=== PATIENT | male | born 1945 | race Caucasian/White ===

== ENCOUNTER 2017-08-19 12:53 | Emergency (ER) | payer MEDICARE ==
[~2017-08-19 12:53] MED LIST: ASPI325T PO; CYAN1000P IM; DIGO0.25 PO; LEVO50TA4 PO; VITA10002 PO
[2017-08-19 12:56] VITALS: BP 118/57; PULSE 89; RESP 14; TEMP 98.6; O2SAT 99
[2017-08-19 16:03] LABS: AUTOMATED NEUTROPHIL # 7.3 TH/MM3 (1.8-7.7); BASOPHIL % 0.2 % (0.0-2.0); EOSINOPHIL % 0.3 % (0.0-4.0); HEMATOCRIT 45.5 % (39.0-51.0); HEMOGLOBIN 15.2 GM/DL (13.0-17.0); LYMPH % 5.4 % (9.0-44.0); LYMPHOCYTE # 0.5 TH/MM3 (1.0-4.8); MEAN CELL VOLUME 93.8 FL (80.0-100.0); MEAN CORPUSCULAR HEMOGLOBIN 31.4 PG (27.0-34.0); MEAN CORPUSCULAR HGB CONC 33.5 % (32.0-36.0); MEAN PLATELET VOLUME 8.2 FL (7.0-11.0); MONO % 12.5 % (0.0-8.0); MONOCYTE # 1.1 TH/MM3 (0-0.9); NEUT % 81.6 % (16.0-70.0); PLATELET COUNT 164 TH/MM3 (150-450); RED BLOOD COUNT 4.85 MIL/MM3 (4.50-5.90); RED CELL DISTRIBUTION WIDTH 13.3 % (11.6-17.2); WHITE BLOOD COUNT 8.9 TH/MM3 (4.0-11.0)
[2017-08-19 16:18] LABS: ALBUMIN 3.9 GM/DL (3.4-5.0); ALT (GPT) 39 U/L (12-78); AST (GOT) 21 U/L (15-37); BICARBONATE 25.8 MEQ/L (21.0-32.0); BLOOD UREA NITROGEN 30 MG/DL (7-18); CALCIUM 9.2 MG/DL (8.5-10.1); CHLORIDE 97 MEQ/L (98-107); CREATININE 1.26 MG/DL (0.60-1.30); GLOMERULAR FILTRATION RATE 56 ML/MIN (>89); GLUCOSE,RANDOM 212 MG/DL (74-106); LIPASE 123 U/L (73-393); SODIUM (NA) 133 MEQ/L (136-145)
[2017-08-19 16:21] LABS: ALKALINE PHOSPHATASE 69 U/L (45-117); TOTAL BILIRUBIN ADULT 1.2 MG/DL (0.2-1.0); TOTAL PROTEIN 7.9 GM/DL (6.4-8.2)
[2017-08-19] MEDS ORDERED: ZOFR4TAB3 SL (17:09)
[2017-08-19 17:10] VITALS: BP_SYST 131; BP_SYST 132; BP_DIAS 73; BP_DIAS 86; RESP 20
--- NOTE | 2017-08-19 17:10 | PD ---
HPI Chief Complaint: Medical Clearance Time Seen by Provider: 16:01 Travel History International Travel<30 days: No Contact w/Intl Traveler<30days: No Traveled to known affect area: No History of Present Illness HPI 72-year-old male presents to the emergency department after being referred from his primary care for hypertension. Patient's blood pressure was in the 80s systolically and his primary care. Patient states he was reported to the doctor today because he's been feeling weak with a sore throat since last . At his primary care office today he had an episode of nausea and he vomited once. Patient states that is the only time he has vomited the symptoms started. Patient denies any chest pain, shortness breath, abdominal pain, diarrhea. Patient denies any nausea at this time. Patient is denies any fever , chills, malaise. PFSH Past Medical History Cancer: No Cardiovascular Problems: No Diminished Hearing: No Endocrine: Yes Genitourinary: No Immune Disorder: No Musculoskeletal: No Neurologic: Yes Psychiatric: No Reproductive: No Respiratory: No Thyroid Disease: Yes (hypothyroidism) Social History Alcohol Use: Yes (occ) Tobacco Use: No Substance Use: No Allergies-Medications (Allergen,Severity, Reaction): Coded Allergies: No Known Allergies (Verified Adverse Reaction, Unknown, 08/19/17) Reported Meds & Prescriptions Reported Meds & Active Scripts Active Zofran Odt (Ondansetron Odt) 4 Mg Tab 4 Mg SL Q6HR PRN Reported Vitamin B12 (Cyanocobalamin) 1,000 Mcg/Ml Inj 1,000 Mcg IM MONTHLY Vitamin B12 (Cyanocobalamin) 1,000 Mcg/Ml Inj 1,000 Mcg IM DAILY 7 Days After 7 days completed, then start monthly dose Vitamin B12 (Cyanocobalamin) 1,000 Mcg Tab 1,000 Mcg PO DAILY Digoxin 0.25 mg (Digoxin) 0.25 Mg Tab 0.25 Mg PO Aspirin 325 mg (Aspirin) 325 Mg Tab 325 Mg PO DAILY Levothyroxine 50 mcg (Levothyroxine Sodium) 50 Mcg Tab 50 Mcg PO DAILY Review of Systems Except as stated in HPI: all other systems reviewed are Neg Physical Exam Narrative GENERAL: Well-nourished, well-developed 72-year-old male patient in no acute distress. Nontoxic appearing. SKIN: Focused skin assessment warm/dry. HEAD: Normocephalic. Atraumatic. NEUROLOGICAL: Awake and alert. Cranial nerves II through XII intact. Motor and sensory grossly within normal limits. Five out of 5 muscle strength in all muscle groups. Normal speech. EYES: No scleral icterus. No injection or drainage. THROAT: Mild pharyngeal injection, No exudates or tonsillar hypertrophy. Airway is patent. NECK: Supple, trachea midline. No JVD or lymphadenopathy. CARDIOVASCULAR: Regular rate and rhythm without murmurs, gallops, or rubs. RESPIRATORY: Breath sounds equal bilaterally. No accessory muscle use. GASTROINTESTINAL: Abdomen soft, non-tender, nondistended. MUSCULOSKELETAL: No cyanosis, or edema. BACK: Nontender without obvious deformity. No CVA tenderness. Data Data Last Documented VS Vital Signs Date Time Temp Pulse Resp B/P (MAP) Pulse Ox O2 Delivery O2 Flow Rate FiO2 08/19/17 17:22 08/19/17 17:10 69 20 83 20 08/19/17 12:56 98.6 99 Orders Orders Complete Blood Count With Diff (08/19/17 13:16) Comprehensive Metabolic Panel (08/19/17 13:16) Lipase (08/19/17 13:16) Group A Rapid Strep Screen (08/19/17 13:16) Influenzae A/B Antigen (08/19/17 13:16) Strep Culture (Group A) (08/19/17 15:30) Electrocardiogram (08/19/17 ) Orthostatic Vital Signs (08/19/17 16:46) Ed Discharge Order (08/19/17 17:12) Labs Laboratory Tests Test 08/19/17 15:30 White Blood Count 8.9 TH/MM3 Red Blood Count 4.85 MIL/MM3 Hemoglobin 15.2 GM/DL Hematocrit 45.5 % Mean Corpuscular Volume 93.8 FL Mean Corpuscular Hemoglobin 31.4 PG Mean Corpuscular Hemoglobin Concent 33.5 % Red Cell Distribution Width 13.3 % Platelet Count 164 TH/MM3 Mean Platelet Volume 8.2 FL Neutrophils (%) (Auto) 81.6 % Lymphocytes (%) (Auto) 5.4 % Monocytes (%) (Auto) 12.5 % Eosinophils (%) (Auto) 0.3 % Basophils (%) (Auto) 0.2 % Neutrophils # (Auto) 7.3 TH/MM3 Lymphocytes # (Auto) 0.5 TH/MM3 Monocytes # (Auto) 1.1 TH/MM3 Eosinophils # (Auto) 0.0 TH/MM3 Basophils # (Auto) 0.0 TH/MM3 CBC Comment DIFF FINAL Differential Comment Blood Urea Nitrogen 30 MG/DL Creatinine 1.26 MG/DL Random Glucose 212 MG/DL Total Protein 7.9 GM/DL Albumin 3.9 GM/DL Calcium Level 9.2 MG/DL Alkaline Phosphatase 69 U/L Aspartate Amino Transf (AST/SGOT) 21 U/L Alanine Aminotransferase (ALT/SGPT) 39 U/L Total Bilirubin 1.2 MG/DL Sodium Level 133 MEQ/L Potassium Level 4.0 MEQ/L Chloride Level 97 MEQ/L Carbon Dioxide Level 25.8 MEQ/L Anion Gap 10 MEQ/L Estimat Glomerular Filtration Rate 56 ML/MIN Lipase 123 U/L [facility] Medical Decision Making Medical Screen Exam Complete: Yes Emergency Medical Condition: Yes Interpretation(s) Afebrile, normotensive Differential Diagnosis Differential diagnosis include but not limited to electrolyte abnormality, dehydration, arrhythmia, sepsis Narrative Course Blood work sent from triage. CBC, CMP, lipase ordered and pending. Rapid strep and influenza ordered and pending. CBC is unremarkable. CMP shows mild hyponatremia at 133, elevated BUN at 30, decreased GFR 56, elevated glucose of 212. Lipase 123. Rapid strep and influenza both negative. Orthostatic vital show a up of 14 beats a minute heart rate from lying to standing. He should prefer not to have an IV so alternative of Gatorade PO for hydration was provided. Patient drank two full sized Gatorades in our facility. Patient instructed to consume electrolyte drinks until symptoms of weakness completely resolve. EKG was ordered and interpreted. It showed sinus rhythm with sinus arrhythmia with first degree AV block, HR 66. Symptoms significantly better after hydration. Patient is discharged home with instructions as a hydrated and given a prescription for Zofran for nausea as needed. Diagnosis Primary Impression: Generalized weakness Referrals: Primary Care Physician Patient Instructions: General Instructions, Weakness (ED) Med/Other Pt SpecificInfo: Prescription(s) given Scripts Ondansetron Odt (Zofran Odt) 4 Mg Tab 4 MG SL Q6HR Y for Nausea/Vomiting, #15 TAB 0 Refills Prov: Luisa Valenzuela 08/19/17 Disposition: DISCHARGE HOME Condition: Stable Luisa Valenzuela Aug 19, 2017 17:10
--- NOTE | 2017-08-20 16:07 | EKG ---
Date Performed: 08/19/2017 Time Performed: 17:10:43 PTAGE: 72 years EKG: Sinus rhythm WITH SINUS ARRHYTHMIA WITH FIRST DEGREE AV BLOCK NONSPECIFIC T-WAVE ABNORMALITY ABNORMAL ECG PREVIOUS TRACING : 06/05/2011 03.10 Rate has slowed since prior tracing with normalization of S T-T wave changes. Clinical correlation is recommended. DOCTOR: Camilo Daniels Interpretating Date/Time 08/20/2017 16:06:44
[2017-08-20] MEDS ORDERED: ARMO120T PO (17:29)
[2017-08-20] MEDS ORDERED: METF500T PO (17:29)
[2017-08-20] MEDS ORDERED: DIGO0.25 PO (17:29)
[2017-08-20] MEDS ORDERED: CEFU1TAB20 PO (17:29)
== END 2017-08-19 17:22 | disposition home or self-care (01) ==
LOC: NEPD 12:53
DX: R53.1 Weakness (principal); J02.9 Acute pharyngitis, unspecified; E03.9 Hypothyroidism, unspecified; R94.31 Abnormal electrocardiogram [ECG] [EKG]
CPT/HCPCS: 80053; 83690; 85025; 87081; 87804; 87880; 93005

== ENCOUNTER 2017-08-20 13:23 | Emergency (ER) | payer MEDICARE ==
[~2017-08-20] VITALS: Ht 190.5 cm; Wt 91.0 kg
[~2017-08-20 13:23] MED LIST changes: +ZOFR4TAB3 SL
[2017-08-20 13:25] VITALS: BP 128/77; PULSE 81; RESP 16; TEMP 98.4; O2SAT 97
[2017-08-20] MEDS ORDERED: METF500T PO (17:29)
[2017-08-20] MEDS ORDERED: CEFU1TAB20 PO (17:29)
[2017-08-20] MEDS ORDERED: ARMO120T PO (17:29)
[2017-08-20] MEDS ORDERED: DIGO0.25 PO (17:29)
--- NOTE | 2017-08-20 18:08 | PD ---
HPI Chief Complaint: fall Time Seen by Provider: 17:50 Travel History International Travel<30 days: No Contact w/Intl Traveler<30days: No Traveled to known affect area: No History of Present Illness HPI 72yo M with PMH of SVT on digoxin, DM presents to the ED with c/o being afraid to eat or drink because he is not sure if he will keep it down. Pt said he fell yesterday while in the bathroom and hit his head with LOC. He again went to the bathroom today and said he fell and passed out after hitting his forehead. Girlfriend said he had +LOC. Pt denies any chest pain, sob, n/v, abdominal pain, focal weakness or numbness. Said he came to the ED yesterday for hydration and has not vomited since yesterday. Said he took zofran and has not eaten/drank anything today because he was afraid to. PFSH Past Medical History Atrial Fibrillation: Yes Cancer: No Cardiovascular Problems: No Diabetes: Yes Patient Takes Glucophage: Yes (metformin ) Diminished Hearing: No Endocrine: Yes Gastrointestinal Disorders: No Genitourinary: No Immune Disorder: No Implanted Vascular Access Dvce: No Musculoskeletal: No Neurologic: Yes Psychiatric: No Reproductive: No Respiratory: No Thyroid Disease: Yes (hypothyroidism) Past Surgical History Surgical History: No Previous Surgery Other Surgery: No Social History Alcohol Use: Yes (occ) Tobacco Use: No Substance Use: No Allergies-Medications (Allergen,Severity, Reaction): Coded Allergies: No Known Allergies (Verified Adverse Reaction, Unknown, 08/19/17) Reported Meds & Prescriptions Reported Meds & Active Scripts Active Reported Cefuroxime (Cefuroxime Axetil) 500 Mg Tab 500 Mg PO BID Metformin (Metformin HCl) 500 Mg Tab 500 Mg PO DAILY With a meal [place] Thyroid (Thyroid) 120 Mg Tab 120 Mg PO DAILY Digoxin 0.25 Mg Tab 0.25 Mg PO DAILY Review of Systems Except as stated in HPI: all other systems reviewed are Neg Physical Exam Narrative GENERAL: 72yo M not in distress. SKIN: Focused skin assessment warm/dry. HEAD:Abrasions on forehead. EYES: Pupils equal and round. No scleral icterus. No injection or drainage. ENT: No nasal bleeding or discharge. Mucous membranes pink and moist. NECK: Trachea midline. No JVD. CARDIOVASCULAR: Regular rate and rhythm. No murmur appreciated. RESPIRATORY: No accessory muscle use. Clear to auscultation. Breath sounds equal bilaterally. GASTROINTESTINAL: Abdomen soft, non-tender, nondistended. MUSCULOSKELETAL: No obvious deformities. No clubbing. No cyanosis. No edema. NEUROLOGICAL: Awake and alert. No obvious cranial nerve deficits. Motor grossly within normal limits. Normal speech. PSYCHIATRIC: Appropriate mood and affect; insight and judgment normal. Data Data Last Documented VS Vital Signs Date Time Temp Pulse Resp B/P (MAP) Pulse Ox O2 Delivery O2 Flow Rate FiO2 08/20/17 22:46 08/20/17 22:29 79 20 98 Room Air 08/20/17 13:25 98.4 Orders Orders Electrocardiogram (08/20/17 18:03) Basic Metabolic Panel (Bmp) (08/20/17 18:03) Comprehensive Metabolic Panel (08/20/17 18:03) Magnesium (Mg) (08/20/17 18:03) B-Type Natriuretic Peptide (08/20/17 18:03) Troponin I (08/20/17 18:03) Prothrombin Time / Inr (Pt) (08/20/17 18:03) Urinalysis - C+S If Indicated (08/20/17 18:03) Ct Brain W/O Iv Contrast(Rout) (08/20/17 18:03) Ondansetron Inj (Zofran Inj) (08/20/17 18:15) Digoxin (08/20/17 18:08) Sodium Chlorid 0.9% 500 Ml Inj (Ns 500 M (08/20/17 19:15) Orthostatic Vital Signs (08/20/17 19:10) Complete Blood Count With Diff (08/20/17 19:27) Ed Discharge Order (08/20/17 22:28) Labs Laboratory Tests Test 08/20/17 18:16 08/20/17 19:10 08/20/17 19:56 08/20/17 21:27 Prothrombin Time 11.2 SEC Prothromb Time International Ratio 1.1 RATIO Blood Urea Nitrogen 33 MG/DL Creatinine 1.31 MG/DL Random Glucose 136 MG/DL Total Protein 8.3 GM/DL Albumin 4.2 GM/DL Calcium Level 9.4 MG/DL Magnesium Level 2.8 MG/DL Alkaline Phosphatase 72 U/L Aspartate Amino Transf (AST/SGOT) 37 U/L Alanine Aminotransferase (ALT/SGPT) 39 U/L Total Bilirubin 1.1 MG/DL Sodium Level 131 MEQ/L Potassium Level 4.2 MEQ/L Chloride Level 94 MEQ/L Carbon Dioxide Level 27.6 MEQ/L Anion Gap 9 MEQ/L Estimat Glomerular Filtration Rate 53 ML/MIN Troponin I LESS THAN 0.02 NG/ML B-Type Natriuretic Peptide 3 PG/ML Digoxin Level 0.6 NG/ML Urine Color YELLOW Urine Turbidity CLEAR Urine pH 5.5 Urine Specific [place] 1.017 Urine Protein TRACE mg/dL Urine Glucose (UA) NEG mg/dL Urine Ketones NEG mg/dL Urine Occult Blood NEG Urine Nitrite NEG Urine Bilirubin NEG Urine Urobilinogen LESS THAN 2.0 MG/DL Urine Leukocyte Esterase NEG Urine WBC LESS THAN 1 /hpf Urine Hyaline Casts 4 /lpf Urine Mucus FEW /lpf Microscopic Urinalysis Comment CULT NOT INDICATED White Blood Count 6.9 TH/MM3 Red Blood Count 4.28 MIL/MM3 Hemoglobin 13.7 GM/DL Hematocrit 40.0 % Mean Corpuscular Volume 93.4 FL Mean Corpuscular Hemoglobin 32.1 PG Mean Corpuscular Hemoglobin Concent 34.4 % Red Cell Distribution Width 13.6 % Platelet Count 185 TH/MM3 Mean Platelet Volume 8.6 FL Neutrophils (%) (Auto) 70.0 % Lymphocytes (%) (Auto) 12.8 % Monocytes (%) (Auto) 15.2 % Eosinophils (%) (Auto) 1.7 % Basophils (%) (Auto) 0.3 % Neutrophils # (Auto) 4.8 TH/MM3 Lymphocytes # (Auto) 0.9 TH/MM3 Monocytes # (Auto) 1.0 TH/MM3 Eosinophils # (Auto) 0.1 TH/MM3 Basophils # (Auto) 0.0 TH/MM3 CBC Comment DIFF FINAL Differential Comment MDM Medical Decision Making Medical Screen Exam Complete: Yes Emergency Medical Condition: Yes Interpretation(s) EKG: NSR 64bpm with 1st AV block. Q wave aVF. Differential Diagnosis Arrhythmia vs. ICH vs. dehydration vs. electrolyte abnormality Narrative Course 72yo M with fall. Pt said his socks were slipping and his feet was widening and he lost balance and that is why he fell. He was evaluated here yesterday and given PO hydration. Labs reviewed, no leukocytosis. H/H normal. Denies any black stool or blood in stool. Mild hyponatremia at 131. BUN/creatinine elevated at 33/1.31. Total bilirubin 1.1. These all point towards dehydration. Troponin negative. BNP 3. Pt has no abdominal pain on exam. CT brain showed no acute intracranial abnormality. Chronic ventriculomegaly. Orthostatic positive and pt given NS IVF. Denies any chest pain or sob. Pt reevaluated at bedside after NS IVF and said he feels better and wants to go home. Pt denies any symptoms. Pt ambulating in the ED without any symptoms. Pt tolerating PO and has no abdominal pain. Strict return precautions given. Diagnosis Primary Impression: Dehydration Patient Instructions: General Instructions Departure Forms: Tests/Procedures Additional Instructions: Please follow up with your primary care physician in 2-3 days. Return to the ED if symptoms worsen. Med/Other Pt SpecificInfo: No Change to Meds Disposition: 01 DISCHARGE HOME Condition: Stable oD Rivera Aug 20, 2017 18:07
[2017-08-20] MEDS ORDERED: ONDANSETRON HCL 4 MG/2 ML VIAL IVP ONE (18:15)
[2017-08-20 18:43] LABS: INTERNATIONAL NORMALIZED RATIO 1.1 RATIO; PROTHROMBIN TIME - PATIENT 11.2 SEC (9.8-11.6)
--- NOTE | 2017-08-20 18:51 | RADRPT ---
EXAM DATE/TIME: 08/20/2017 18:42 [facility] COMPARISON: MRI BRAIN W & W/O CONTRAST, June 03, 2011, 19:55. CT BRAIN W/O CONTRAST, June 03, 2011, 18:33 . INDICATIONS : Trauma; fall. RADIATION DOSE: 38.80 CTDIvol (mGy) MEDICAL HISTORY : Cardiovascular disease. SURGICAL HISTORY : None. ENCOUNTER: Initial ACUITY: 1 day PAIN SCALE: 5/10 LOCATION: cranial TECHNIQUE: Multiple contiguous axial images were obtained of the head. Using automated exposure control and adj ustment of the mA and/or kV according to patient size, radiation dose was kept as low as reasonably a chievable to obtain optimal diagnostic quality images. DICOM format image data is available electro nically for review and comparison. FINDINGS: CEREBRUM: There is moderate ventriculomegaly, not new but is slightly increased since 2010.. No evidence of mi dline shift, mass lesion, hemorrhage or acute infarction. No extra-axial fluid collections are seen. POSTERIOR FOSSA: The cerebellum and brainstem are intact. The 4th ventricle is midline. The cerebellopontine angle i s unremarkable. EXTRACRANIAL: The visualized portion of the orbits is intact. SKULL: The calvaria is intact. No evidence of skull fracture. CONCLUSION: 1. No acute intracranial abnormality. 2. Chronic ventriculomegaly, slightly worse than in 2010. Amanuel Jonas MD on August 20, 2017 at 18:46 Board Certified Radiologist. This report was verified electronically.
[2017-08-20 18:59] LABS: ALBUMIN 4.2 GM/DL (3.4-5.0); ALT (GPT) 39 U/L (12-78); AST (GOT) 37 U/L (15-37); BICARBONATE 27.6 MEQ/L (21.0-32.0); BLOOD UREA NITROGEN 33 MG/DL (7-18); CALCIUM 9.4 MG/DL (8.5-10.1); CHLORIDE 94 MEQ/L (98-107); CREATININE 1.31 MG/DL (0.60-1.30); GLOMERULAR FILTRATION RATE 53 ML/MIN (>89); GLUCOSE,RANDOM 136 MG/DL (74-106); MAGNESIUM 2.8 MG/DL (1.5-2.5); SODIUM (NA) 131 MEQ/L (136-145)
[2017-08-20 19:02] LABS: ALKALINE PHOSPHATASE 72 U/L (45-117); TOTAL BILIRUBIN ADULT 1.1 MG/DL (0.2-1.0); TOTAL PROTEIN 8.3 GM/DL (6.4-8.2); TROPONIN I LESS THAN 0.02 NG/ML (0.02-0.05)
[2017-08-20 19:06] VITALS: BP 133/76; PULSE 65; RESP 18; O2SAT 98
[2017-08-20] MEDS ORDERED: SODIUM CHLORID 0.9% 500 ML INJ 500 ML IV ONE (19:15)
[2017-08-20 19:18] VITALS: BP 131/79; RESP 18
[2017-08-20 19:20] VITALS: BP 120/75; RESP 18
[2017-08-20 19:22] VITALS: BP 89/61; RESP 18
[2017-08-20 20:29] LABS: BILIRUBIN, URINE NEG (NEG); BLOOD, URINE NEG (NEG); GLUCOSE,URINE NEG (NEG); HYALINE CAST, URINE 4 /lpf (RARE); KETONE, URINE NEG (NEG); MUCUS URINE FEW /lpf (OCC); NITRITE,URINE NEG (NEG); PH, URINE 5.5 (5.0-8.5); URINE COLOR YELLOW (YELLW/STRAW); URINE LEUKOCYTE ESTERASE NEG (NEG)
[2017-08-20 22:24] LABS: AUTOMATED NEUTROPHIL # 4.8 TH/MM3 (1.8-7.7); BASOPHIL % 0.3 % (0.0-2.0); EOSINOPHIL # 0.1 TH/MM3 (0-0.4); EOSINOPHIL % 1.7 % (0.0-4.0); HEMOGLOBIN 13.7 GM/DL (13.0-17.0); LYMPH % 12.8 % (9.0-44.0); LYMPHOCYTE # 0.9 TH/MM3 (1.0-4.8); MEAN CELL VOLUME 93.4 FL (80.0-100.0); MEAN CORPUSCULAR HEMOGLOBIN 32.1 PG (27.0-34.0); MEAN CORPUSCULAR HGB CONC 34.4 % (32.0-36.0); MEAN PLATELET VOLUME 8.6 FL (7.0-11.0); MONO % 15.2 % (0.0-8.0); PLATELET COUNT 185 TH/MM3 (150-450); RED BLOOD COUNT 4.28 MIL/MM3 (4.50-5.90); RED CELL DISTRIBUTION WIDTH 13.6 % (11.6-17.2); WHITE BLOOD COUNT 6.9 TH/MM3 (4.0-11.0)
[2017-08-20 22:29] VITALS: BP 115/78; PULSE 79; RESP 20; O2SAT 98
--- NOTE | 2017-08-21 21:49 | EKG ---
Date Performed: 08/20/2017 Time Performed: 18:55:34 PTAGE: 72 years EKG: Sinus rhythm WITH FIRST DEGREE AV BLOCK BORDERLINE LEFT AXIS DEVIATION NONSPECIFIC T-WAVE ABNORMALITY ABNORMAL EC G PREVIOUS TRACING : 08/19/2017 17.10 Compared to prior tracing no significant change DOCTOR: Cas Conde Interpretating Date/Time 08/21/2017 21:48:13
== END 2017-08-20 22:47 | disposition home or self-care (01) ==
LOC: NEPD 13:23
DX: E86.0 Dehydration (principal); S00.81XA Abrasion of other part of head, initial encounter; R94.31 Abnormal electrocardiogram [ECG] [EKG]; I48.91 Unspecified atrial fibrillation; E11.9 Type 2 diabetes mellitus without complications; E03.9 Hypothyroidism, unspecified; W18.30XA Fall on same level, unspecified, initial encounter; Y92.002 Bathroom of unspecified non-institutional (private) residence as the place of occurrence of the external cause
CPT/HCPCS: 70450; 80053; 80162; 81001; 83735; 83880; 84484; 85025; 85610; 93005; 96361; 96374; 99285; J2405; J7040